=== PATIENT | male | born 1995 | race Hispanic/Latino ===

== ENCOUNTER 2022-06-02 09:13 | Emergency (ER) | payer OTHER ==
[2022-06-02 09:15] VITALS: BP 132/71
[2022-06-02] MEDS ORDERED: TETANUS/DIPHTHERIA TOXOID [ADULT] 0.5 ML VIAL IM STA (09:29)
[2022-06-02] MEDS ORDERED: CEFTRIAXONE 1G VIAL IM STA (09:29)
[2022-06-02] MEDS ORDERED: CEPH500B PO (09:41)
[2022-06-02] MEDS ORDERED: NAPR375T6 PO (09:41)
== END 2022-06-02 10:04 | disposition home or self-care (01) ==
LOC: EDH 09:13
DX: L02.415 Cutaneous abscess of right lower limb (principal); L03.115 Cellulitis of right lower limb; F20.9 Schizophrenia, unspecified; F31.9 Bipolar disorder, unspecified; Z59.01 Sheltered homelessness
CPT/HCPCS: 99284; 87070; 87077; 87186; 90714; 96372; 90471; J0696